=== PATIENT | male | born 1980 | race Caucasian/White ===

== ENCOUNTER 2016-03-17 14:15 | Emergency (ER) | payer SELFPAY ==
[2013-04-03 16:15] VITALS: BMI 34.3
[~2016-03-17 14:15] MED LIST: AMOXICILLIN500 M1 PO; CELEBREX200 MG PO; PRINIVIL20 MG PO; STERAPRED DS 1210 MG PO
[2016-03-17 16:53] LABS: BASOPHILS 0.1 % (0.0-2.0); EOSINOPHILS 1.3 % (0-7); HEMATOCRIT 44.9 % (42.0-54.0); HEMOGLOBIN 15.7 g/dL (13.5-17.5); IMMATURE GRANULOCYTES 0.3 % (0-5); LYMPHOCYTES 16.6 % (15-50); MCH 33.9 pg (26.0-34.0); MEAN PLATELET VOLUME 9.8 fL (7.4-10.4); NEUTROPHILS 74.7 % (40-80); RBC 4.63 10x6/uL (4.20-6.10); RDW 13.2 % (11.5-14.5); WBC 9.3 10x3/uL (4.8-10.8)
[2016-03-17 16:54] LABS: PLATELET COUNT 184 10x3/uL (130-400)
[2016-03-17 17:11] LABS: ALBUMIN 3.5 g/dL (3.4-5.0); ALKALINE PHOSPHATASE 61 U/L (46-116); ALT (SGPT) 35 U/L (10-68); BILIRUBIN - TOTAL 0.51 mg/dL (0.2-1.3); CALC OSMOLALITY 266 mosm/kg (275-300); CALCIUM 9.3 mg/dL (8.5-10.1); CARBON DIOXIDE 23.7 mmol/L (21.0-32.0); CHLORIDE - SERUM 100 mmol/L (98-107); CREATININE - SERUM 1.1 mg/dL (0.6-1.3); GLUCOSE 138 mg/dL (74-106); POTASSIUM - SERUM 3.6 mmol/L (3.5-5.1); PROTEIN - SERUM 7.4 g/dL (6.4-8.2); SODIUM 133 mmol/L (136-145); UREA NITROGEN 10 mg/dL (7-18); URIC ACID 9.8 mg/dL (2.6-7.2); eGFR NON AFRICAN AMERICAN 81 mL/min (90-120)
== END 2016-03-17 18:32 | disposition home or self-care (01) ==
LOC: D.ER 14:15
PROVIDERS: Physician Assistant
DX: M10.9 Gout, unspecified (principal); I10 Essential (primary) hypertension; F17.200 Nicotine dependence, unspecified, uncomplicated